=== PATIENT | female | born 1990 | race Caucasian/White ===

== ENCOUNTER 2016-12-13 09:50 | Observation (INO) | payer OTHER ==
[~2016-12-13] VITALS: Ht 165.1 cm; Wt 71.3 kg
[2016-12-13] MEDS ORDERED: morphine 4 MG/ML VIAL IV STA (10:23)
[2016-12-13] MEDS ORDERED: SOD CHLORIDE 0.9% 1,000 ML IV STA (10:23)
--- NOTE | 2016-12-13 10:30 | ERD ---
ER Documentation Chief Complaint Date/Time DATE: 12/13/16 TIME: 10:28 Chief Complaint ap today, hx gallstones HPI This is a 26-year-old female presents to the ER complaining of right upper quadrant abdominal pain. Patient has a past medical history of gallstones. Yesterday she had some nodules that had a lot of cheese on them she began to experience pain shortly after that. Pain is significantly increased. Patient denies any fevers or chills. She does admit to nausea however she denies vomiting. She denies diarrhea. Patient tried taking 2 Advil however it did not help the pain. It is not described as crampy in nature. ROS 12 point review of systems was done, all negative except per HPI. Allergies Allergies: Coded Allergies: No Known Drug Allergies (Verified Allergy, Mild, 01/01/15) PMhx/Soc Medical and Surgical Hx: pt denies Surgical Hx History of Surgery: No Anesthesia Reaction: No Hx Neurological Disorder: No Hx Respiratory Disorders: No Hx Cardiac Disorders: No Hx Psychiatric Problems: No Hx Miscellaneous Medical Probl: Yes (GALLSTONES) Hx Alcohol Use: No Hx Substance Use: No Hx Tobacco Use: No Smoking Status: Never smoker Physical Exam Vitals Vital Signs Date Time Temp Pulse Resp B/P Pulse Ox O2 Delivery O2 Flow Rate FiO2 12/13/16 10:01 98.1 58 20 101/55 99 Physical Exam GENERAL: The patient is well developed and appropriate for usual state of health , in no apparent distress. HEENT: Atraumatic. CHEST: Clear to auscultation bilaterally. There are no rales, wheezes or rhonchi. HEART: Regular rate and rhythm. No murmurs, clicks, rubs or gallops. ABDOMEN: Soft, nontender and nondistended. Good bowel sounds. No rebound or guarding. No gross peritonitis. No gross organomegaly or masses. No Stephens sign or McBurney point tenderness. BACK: No midline or flank tenderness. EXTREMITIES:Full range of motion. Grossly neurovascularly intact. NEURO: Alert and oriented. Result Diagram: 12/13/16 1125 12/13/16 1125 Results 24 hrs Laboratory Tests Test 12/13/16 10:45 12/13/16 11:25 Urine Bilirubin NEGATIVE Urine Clarity CLEAR Urine Color YELLOW Urine Glucose NEGATIVE% Urine Hemoglobin TRACE Urine Ketones NEGATIVE Urine Leukocyte Esterase TRACE Urine Microscopic RBC 0-2/HPF Urine Microscopic WBC 10-25/HPF Urine Mucus MODERATE Urine Nitrite NEGATIVE Urine Specific [place] >=1.030 Urine Squamous Epithelial Cells MANY Urine Total Protein TRACE Urine Urobilinogen 0.2 E.U./dL Urine pH 6.0 Alanine Aminotransferase (ALT/SGPT) 102IU/L Albumin 4.3g/dl Albumin/Globulin Ratio 1.22 Alkaline Phosphatase 117IU/L Anion Gap 16 Aspartate Amino Transf (AST/SGOT) 190IU/L Basophils # 0.010^3/ul Basophils % 0.2% Blood Urea Nitrogen 11mg/dl Calcium Level 9.2mg/dl Carbon Dioxide Level 28mmol/L Chloride Level 104mmol/L Creatinine 0.75mg/dl Direct Bilirubin 0.00mg/dl Eosinophils # 0.010^3/ul Eosinophils % 0.1% Globulin 3.50g/dl Glucose Level 101mg/dl Hematocrit 40.2% Hemoglobin 13.7g/dl Indirect Bilirubin 0.6mg/dl Lipase 98U/L Lymphocytes # 0.510^3/ul Lymphocytes % 4.4% Mean Corpuscular Hemoglobin 30.6pg Mean Corpuscular Hemoglobin Concent 34.0g/dl Mean Corpuscular Volume 90.0fl Mean Platelet Volume 9.9fl Monocytes # 0.910^3/ul Monocytes % 7.3% Neutrophils # 10.410^3/ul Neutrophils % 88.0% Nucleated Red Blood Cells # 0.010^3/ul Nucleated Red Blood Cells % 0.0/100WBC Platelet Count 22674^3/UL Potassium Level 3.3mmol/L Red Blood Count 4.4710^6/ul Red Cell Distribution Width 13.2% Sodium Level 145mmol/L Total Bilirubin 0.6mg/dl Total Protein 7.8g/dl White Blood Count 11.810^3/ul Current Medications Medications (Trade) Dose Ordered Sig/Tanvir Route PRN Reason Start Time Stop Time Status Last Admin Dose Admin Sodium Chloride (NS) 1,000 ml @ 1,000 mls/hr Q1H STAT IV 12/13/16 10:23 12/13/16 11:22 DC 12/13/16 11:28 Morphine Sulfate (morphine) 6 mg ONCE STAT IV 12/13/16 10:23 12/13/16 10:25 DC 12/13/16 11:29 Procedures/MDM Differential Diagnosis: GERD, gastritis, peptic ulcer disease, pancreatitis, cholecystitis, choledocholithiasis, biliary colic, cholangitis, [id number] , ACS/MT, Pnuemonia. at this time patient does have choledochal lithiasis. She has an elevation in her liver enzymes. Patient would benefit from admission to do an MRCP. Departure Diagnosis: Primary Impression: Choledocholithiasis Condition: Stable JENNIE GRADY Dec 13, 2016 10:30
--- NOTE | 2016-12-13 11:13 | RADRPT ---
PROCEDURE: US Abdomen (right upper quadrant). CLINICAL INDICATION: Right upper quadrant abdomen pain. The patient recently ate. TECHNIQUE: Multiple real-time longitudinal and transverse images of the right upper quadrant of th e abdomen were acquired utilizing a curved array transducer. Images were reviewed on a high-resoluti on PACS workstation. COMPARISON: Right upper quadrant abdomen ultrasound dated 01/01/2015. FINDINGS: The liver is normal in echogenicity and borderline enlarged. There is no focal hepatic lesion. Color Doppler and pulsed Doppler sonography demonstrate normal a ntegrade flow in the portal vein. The gallbladder is contracted due to the postprandial state. Gallstones are present in the gallbladd er. There is no fluid around the gallbladder. The bile ducts are dilated with the common bile duct measuring 11.5 mm in diameter. The visualized portions of the pancreas are unremarkable with obscuration of the tail of the pancrea s. No free fluid is present. The right kidney measures 10.0 x 3.6 cm. There is normal echogenicity of the right kidney. There is no perinephric fluid collection. No hydronephrosis, mass, or calculus is seen. IMPRESSION: 1. Borderline hepatomegaly. 2. Contracted gallbladder with gallstones present. 3. Dilated common bile duct measuring 11.5 mm; prior was 7 mm. Correlation with MRCP should be con sidered. RPTAT: QQ .Ke Sellers MD, Date Time Electronically viewed and signed by .Ke Sellers MD, on 12/13/2016 11:12 .R/
[2016-12-13 11:33] LABS: ADD UMIC YES; URINE BILIRUBIN (Dip) NEGATIVE (NEGATIVE); URINE BLOOD (Dip) TRACE (NEGATIVE); URINE COLOR YELLOW (YELLOW); URINE GLUCOSE (Dip) NEGATIVE (NEGATIVE); URINE KETONES (Dip) NEGATIVE (NEGATIVE); URINE LEUKOCYTE ESTERASE (Dip) TRACE (NEGATIVE); URINE NITRITE (Dip) NEGATIVE (NEGATIVE); URINE TOTAL PROTEIN (Dip) TRACE (NEGATIVE); URINE UROBILINOGEN (Dip) 0.2 E.U./dL (0.1-1.0)
[2016-12-13 11:56] LABS: SQUAMOUS EPITHELIAL CELL,UR MANY
[2016-12-13 11:57] LABS: MUCUS,URINE MODERATE; URINE RBCS 0-2 /HPF ([, 0])
[2016-12-13 11:58] LABS: ALBUMIN 4.3 g/dl (3.3-4.9); POTASSIUM 3.3 mmol/L (3.5-5.1)
[2016-12-13 12:01] LABS: ALBUMIN/GLOBULIN RATIO 1.22; BILIRUBIN,INDIRECT 0.6 mg/dl (0-1.1); BILIRUBIN,TOTAL 0.6 mg/dl (0.2-1.3); CALCIUM 9.2 mg/dl (8.4-10.2); CREATININE 0.75 mg/dl (0.44-1.00); TOTAL PROTEIN 7.8 g/dl (6.1-8.1)
[2016-12-13 12:11] LABS: BASOPHILS % 0.2 % (0.0-2.0); EOSINOPHILS % 0.1 % (0.0-7.0); HEMATOCRIT 40.2 % (37.0-47.0); HEMOGLOBIN 13.7 g/dl (12.0-16.0); LYMPHOCYTES # 0.5 10^3/ul (0.8-2.9); LYMPHOCYTES % 4.4 % (15.0-51.0); MEAN CORPUSCULAR HEMOGLOBIN 30.6 pg (29.0-33.0); MEAN PLATELET VOLUME 9.9 fl (7.4-10.4); MONOCYTE # 0.9 10^3/ul (0.3-0.9); MONOCYTES % 7.3 % (0.0-11.0); NEUTROPHIL # 10.4 10^3/ul (1.6-7.5); PLATELET COUNT 202 10^3/UL (140-440); RED BLOOD COUNT 4.47 10^6/ul (4.20-5.40); RED CELL DISTRIBUTION WIDTH 13.2 % (11.5-14.5); UNCORRECTED WBC 11.8 10^3/ul (4.8-10.8); WHITE BLOOD COUNT 11.8 10^3/ul (4.8-10.8)
[2016-12-13 12:16] LABS: CONDITION 1
[2016-12-13] MEDS ORDERED: SOD CHLORIDE 0.9% 1,000 ML IV SCH (15:09)
[2016-12-13] MEDS ORDERED: ACETAMINOPHEN 325 MG TAB PO PRN (15:30)
[2016-12-13] MEDS ORDERED: ONDANSETRON 4 MG INJ IV PRN (15:30)
--- NOTE | 2016-12-13 15:48 | CONS ---
Date/Time of Note Date/Time of Note DATE: 12/13/16 TIME: 15:46 Assessment/Plan Assessment/Plan Chief Complaint/Hosp Course Impression: 1. elevated transaminases with normal alk phos and bilirubin 2. gallstones with dilated CBD 3. abdominal pain, likely biliary colic 4. hypokalemia Recommendations: 1. MRCP to r/o CBD stone 2. if there is CBD stone, will plan for ERCP with stone extraction. 3. surgical consult for consideration of cholecystectomy as this is recurrent biliary colic and recommended previously. Patient is amenable to undergo cholecystectomy with my counseling. 4. protonix 40 iv bid in case pain is from gastritis, PUD or esophagitis. 5. check viral hepatitis panel to r/o acute viral hepatitis 6. change IVF to D5 LR with 20 KCL for hydration and replete potassium Problems: Consultation Date/Type/Reason Admit Date/Time Type of Consultation: GI Hx of Present Illness 26-year-old female is admitted for right upper quadrant abdominal pain and r/o choledocholithiasis. Patient has a past medical history of gallstones initially found during her . She was previously told that she needed a cholecystectomy but declined because she was "afraid of surgery". Yesterday she had some nachos that had a lot of cheese on them she began to experience pain shortly after that. Pain at RUQ and radiates to the back. Patient denies any fevers or chills. She does admit to nausea however she denies vomiting. She denies diarrhea. Patient tried taking 2 Advil however it did not help the pain. It is not described as crampy in nature. No fever, chills, chest pain or sob. No dysuria, melena, headache, hematuria. All point ROS administered, pertinent positives and negatives in HPI otherwise negative. Past Medical History Medical History: gallstones, GERD Social History Alcohol Use: occasionally Smoking Status: Never smoker Drug Use: none Exam/Review of Systems Vital Signs Vitals Vital Signs Date Time Temp Pulse Resp B/P Pulse Ox O2 Delivery O2 Flow Rate FiO2 12/13/16 10:01 98.1 58 20 101/55 99 Exam Constitutional: alert, obese, oriented, well developed Psych: nl mood/affect, no complaints Head: atraumatic, normocephalic Eyes: EOMI, nl conjunctiva, nl lids, nl sclera ENMT: mucosa pink and moist, nl external ears & nose, nl lips & teeth, nl nasal mucosa & septum Neck: non-tender, supple Respiratory: clear to auscultation Cardiovascular: nl pulses, regular rate and rhythm Gastrointestinal: bowel sounds, soft, tender (TTP of RUQ but negative [place]) Musculoskeletal: nl extremities to inspection, nl gait and stance Neurological: nl mental status, nl speech, nl strength Results Result Diagram: 12/13/16 1125 12/13/16 1125 Results 24 hrs Laboratory Tests Test 12/13/16 10:45 12/13/16 11:25 Urine Bilirubin NEGATIVE Urine Clarity CLEAR Urine Color YELLOW Urine Glucose NEGATIVE Urine Hemoglobin TRACE Urine Ketones NEGATIVE Urine Leukocyte Esterase TRACE H Urine Microscopic RBC 0-2 Urine Microscopic WBC 10-25 Urine Mucus MODERATE Urine Nitrite NEGATIVE Urine Specific [place] >=1.030 H Urine Squamous Epithelial Cells MANY Urine Total Protein TRACE Urine Urobilinogen 0.2 E.U./dL Urine pH 6.0 Alanine Aminotransferase (ALT/SGPT) 102 H Albumin 4.3 Albumin/Globulin Ratio 1.22 Alkaline Phosphatase 117 Anion Gap 16 Aspartate Amino Transf (AST/SGOT) 190 H Basophils # 0.0 Basophils % 0.2 Blood Urea Nitrogen 11 Calcium Level 9.2 Carbon Dioxide Level 28 Chloride Level 104 Creatinine 0.75 Direct Bilirubin 0.00 Eosinophils # 0.0 Eosinophils % 0.1 Globulin 3.50 H Glucose Level 101 Hematocrit 40.2 # Hemoglobin 13.7 # Indirect Bilirubin 0.6 Lipase 98 Lymphocytes # 0.5 L Lymphocytes % 4.4 L Mean Corpuscular Hemoglobin 30.6 Mean Corpuscular Hemoglobin Concent 34.0 Mean Corpuscular Volume 90.0 Mean Platelet Volume 9.9 Monocytes # 0.9 Monocytes % 7.3 Neutrophils # 10.4 H Neutrophils % 88.0 H Nucleated Red Blood Cells # 0.0 Nucleated Red Blood Cells % 0.0 Platelet Count 202 # Potassium Level 3.3 L Red Blood Count 4.47 # Red Cell Distribution Width 13.2 Sodium Level 145 H Total Bilirubin 0.6 Total Protein 7.8 White Blood Count 11.8 #H Medications Medications Current Medications Sodium Chloride (NS) 1,000 ml @ 80 mls/hr [id number] IV ; Start 12/13/16 at 15:09 ; Stop 12/14/16 at 03:38 GERARD IRAHETA MD Dec 13, 2016 15:48
[2016-12-13] MEDS ORDERED: D5-LR + KCL 20 MEQ 1,000 ML IV SCH (16:00)
[2016-12-13 17:16] VITALS: TEMP 98.3
--- NOTE | 2016-12-13 17:27 | RADRPT ---
PROCEDURE: MRCP. CLINICAL INDICATION: Dilated common bile duct. TECHNIQUE: MRCP was performed on a high field MRI scanner. Patient was examined without contrast. 3-D coronal rotating MIP images of the biliary tree are available for review. COMPARISON: Gallbladder ultrasound 12/13/2016. FINDINGS: The gallbladder is contracted. Tiny signal voids are seen within the gallbladder lumen compatible w ith cholelithiasis. There is no gallbladder wall thickening or pericholecystic edema. The common b ile duct measures approximately 6 mm in greatest diameter. There are no internal signal voids to jarquin ggest the presence of choledocholithiasis. There is no pancreatic duct dilatation. The liver, spleen, pancreas and adrenal glands are unremarkable. The kidneys are symmetric in size and signal intensity. There is no hydronephrosis or perinephric e tana. The stomach is mildly distended. The visualized portions of the small large intestines are unremark able. There is no ascites. IMPRESSION: Cholelithiasis without evidence of acute cholecystitis. No evidence of biliary tract obstruction or choledocholithiasis. RPTAT: HLST .Salud Marcano MD, MD Date Time Electronically viewed and signed by .Salud Marcano MD, on 12/13/2016 17:27 .T/
[2016-12-13 17:43] VITALS: BP 93/54; PULSE 71; RESP 16
[2016-12-13 17:45] VITALS: Ht 165.1 cm; Wt 71.3 kg
[2016-12-13] MEDS ORDERED: no medications (18:02)
[2016-12-13] MEDS: PANTOPRAZOLE 40 MG INJ IV SCH (18:24)
[2016-12-13] MEDS: D5-LR + KCL 20 MEQ 1,000 ML IV SCH (18:49)
[2016-12-13] MEDS ORDERED: morphine 2 MG INJ IV PRN (19:00)
[2016-12-13] MEDS ORDERED: HYDROCODONE/APAP (5/325) TAB PO PRN (19:00)
[2016-12-13 19:41] VITALS: BP 131/72; RESP 18
[2016-12-14] MEDS ORDERED: ACETAMINOPHEN 325 MG TAB PO PRN (04:30)
[2016-12-14] MEDS ORDERED: DOCUSATE SODIUM 100 MG CAP PO PRN (04:30)
[2016-12-14] MEDS ORDERED: NACL 0.9% 3 ML SYG IV SCH (04:30)
[2016-12-14] MEDS ORDERED: ONDANSETRON 4 MG TAB PO PRN (04:30)
[2016-12-14] MEDS: D5-LR + KCL 20 MEQ 1,000 ML IV SCH ×2 (05:03→13:43)
[2016-12-14] MEDS: PANTOPRAZOLE 40 MG INJ IV SCH (07:30)
--- NOTE | 2016-12-14 07:54 | CONS ---
Date/Time of Note Date/Time of Note DATE: 12/14/16 TIME: 07:46 Assessment/Plan Assessment/Plan Chief Complaint/Hosp Course Impression: 1. elevated transaminases with normal alk phos and bilirubin 2. gallstones with dilated CBD which become normal caliber with MRCP. Thus no choledocholithiasis. 3. abdominal pain, likely biliary colic due to gallstones. 4. hypokalemia Recommendations: 1. start clear liquid diet today. 2. No indication for ERCP as MRCP showed normalized CBD without choledocholithiasis. 3. surgical consult for consideration of cholecystectomy as this is recurrent biliary colic and recommended previously. Patient is amenable to undergo cholecystectomy with my counseling. 4. protonix 40 iv bid in case pain is from gastritis, PUD or esophagitis. 5. f/u viral hepatitis panel to r/o acute viral hepatitis 6. continue IVF with D5 LR with 20 KCL for hydration and replete potassium Problems: Consultation Date/Type/Reason Admit Date/Time Dec 13, 2016 at 15:09 Initial Consult Date Type of Consultation: GI 24 HR Interval Summary Free Text/Dictation No abdominal pain today. MRCP reviewed and CBD normal without CBD stone. Feels hungry. Exam/Review of Systems Vital Signs Vitals Vital Signs Date Time Temp Pulse Resp B/P Pulse Ox O2 Delivery O2 Flow Rate FiO2 12/13/16 19:41 98.1 65 18 131/72 99 12/13/16 17:43 Room Air Intake and Output 12/13/16 12/13/16 12/14/16 15:00 23:00 07:00 Intake Total 1362 ml Balance 1362 ml Exam Constitutional: alert, oriented, well developed Psych: nl mood/affect, no complaints Head: atraumatic, normocephalic Eyes: EOMI, nl conjunctiva, nl lids, nl sclera ENMT: mucosa pink and moist, nl external ears & nose, nl lips & teeth, nl nasal mucosa & septum Neck: non-tender, supple Respiratory: clear to auscultation, normal air movement Cardiovascular: nl pulses, regular rate and rhythm Gastrointestinal: bowel sounds, non-tender, soft Neurological: nl mental status, nl speech, nl strength Results Result Diagram: 12/13/16 1125 12/13/16 1125 Results 24 hrs Laboratory Tests Test 12/13/16 10:45 12/13/16 11:25 Urine Bilirubin NEGATIVE Urine Clarity CLEAR Urine Color YELLOW Urine Glucose NEGATIVE Urine Hemoglobin TRACE Urine Ketones NEGATIVE Urine Leukocyte Esterase TRACE H Urine Microscopic RBC 0-2 Urine Microscopic WBC 10-25 Urine Mucus MODERATE Urine Nitrite NEGATIVE Urine Specific [place] >=1.030 H Urine Squamous Epithelial Cells MANY Urine Total Protein TRACE Urine Urobilinogen 0.2 E.U./dL Urine pH 6.0 Alanine Aminotransferase (ALT/SGPT) 102 H Albumin 4.3 Albumin/Globulin Ratio 1.22 Alkaline Phosphatase 117 Anion Gap 16 Aspartate Amino Transf (AST/SGOT) 190 H Basophils # 0.0 Basophils % 0.2 Blood Urea Nitrogen 11 Calcium Level 9.2 Carbon Dioxide Level 28 Chloride Level 104 Creatinine 0.75 Direct Bilirubin 0.00 Eosinophils # 0.0 Eosinophils % 0.1 Globulin 3.50 H Glucose Level 101 Hematocrit 40.2 # Hemoglobin 13.7 # Indirect Bilirubin 0.6 Lipase 98 Lymphocytes # 0.5 L Lymphocytes % 4.4 L Mean Corpuscular Hemoglobin 30.6 Mean Corpuscular Hemoglobin Concent 34.0 Mean Corpuscular Volume 90.0 Mean Platelet Volume 9.9 Monocytes # 0.9 Monocytes % 7.3 Neutrophils # 10.4 H Neutrophils % 88.0 H Nucleated Red Blood Cells # 0.0 Nucleated Red Blood Cells % 0.0 Platelet Count 202 # Potassium Level 3.3 L Red Blood Count 4.47 # Red Cell Distribution Width 13.2 Sodium Level 145 H Total Bilirubin 0.6 Total Protein 7.8 White Blood Count 11.8 #H Medications Medications Current Medications Potassium Cl/ Dextrose/Lact Ringer's (D5-Lr + KCl 20 Meq) 1,000 ml @ 100 mls/ hr Q10H IV Last administered on 12/14/16 05:03; Admin Dose 100 MLS/HR; Start 12/13/16 at 17:43 Morphine Sulfate (morphine) 2 mg Q2H PRN IV MODERATE PAIN LEVEL 4-6 Last administered on 12/14/16 00:38; Admin Dose 2 MG; Start 12/13/16 at 19:00 Acetaminophen/ Hydrocodone Bitart ([place] (5/325)) 1 tab Q4H PRN PO MILD PAIN LEVEL 1-3; Start 12/13/16 at 19:00 Ondansetron HCl (Zofran Tab) 4 mg Q6H PRN PO NAUSEA AND/OR VOMITING; Start at 04:30 Acetaminophen (Tylenol Tab) 650 mg Q6H PRN PO PAIN LEVEL 1-3 OR FEVER; Start at 04:30 Docusate Sodium (Colace) 100 mg Q12H PRN PO CONSTIPATION; Start 12/14/16 at 04: 30 GERARD IRAHETA MD Dec 14, 2016 07:54
[2016-12-14 08:27] VITALS: BP 98/56; RESP 17
[2016-12-14] MEDS ORDERED: FAMOTIDINE 20 MG TAB PO SCH (09:00)
--- NOTE | 2016-12-14 10:04 | HP ---
Date/Time of Note Date/Time of Note DATE: 12/14/16 TIME: 10:03 Assessment/Plan VTE Prophylaxis VTE Prophylaxis Intervention: SCD's Lines/Catheters IV Catheter Type (from Nrs): Peripheral IV Assessment/Plan Assessment/Plan [facility] Healthy 26yo with known gallstones, presenting with probable passage of a gallstone. Dilated CBD on MRI, but no infection. Normal WBC 11.8k/ul. No fever. * Advance diet * Follow-up with Dr. Sanders as an outpatient. * My thanks to Dr. Cash Saunders for his thorough GI care. * If tolerating diet, will discharge home later today on Protonix as suggested, and toradol PRN for recurrent pain. Matt Garcia MD PhD [phone] HPI/ROS Admit Date/Time Admit Date/Time Dec 13, 2016 at 15:09 Hx of Present Illness 26-year-old patient of Dr. Good Diallo who was feeling very well until 8am yesterday when she ate a plate of cheese nachos. She developed severe RUQ pain shortly thereafter, with nausea but no emesis. No fever, chills, diarrhea or constipation. She took some Advil without benefit. She has a known history of gallstones appreciated during the last of her 3 pregnancies. No previous surgery, including . No known drug allergies. No regular medications. ROS As above. Psychological: nl mood/affect, no complaints PMH/Family/Social Past Medical History Medical History: gallstones, GERD Family History Significant Family History: other (No gallbladder disease. Father, mother, and two siblings are all very healthy. No diabetes in the family.) Social History She works with [employer]. Alcohol Use: occasionally Smoking Status: Never smoker Drug Use: none Exam/Review of Systems Vital Signs Vitals Vital Signs Date Time Temp Pulse Resp B/P Pulse Ox O2 Delivery O2 Flow Rate FiO2 12/14/16 08:27 98.7 84 17 98/56 98 12/13/16 17:43 Room Air Intake and Output 12/13/16 12/13/16 12/14/16 15:00 23:00 07:00 Intake Total 1362 ml Balance 1362 ml Exam Constitutional: alert, oriented Psych: no complaints Head: atraumatic, normocephalic Eyes: EOMI, PERRL, nl conjunctiva, nl sclera, No icteric ENMT: mucosa pink and moist Neck: non-tender, supple Respiratory: clear to auscultation, normal air movement, No congested cough, No crackles/rales, No diminished breath sounds, No intercostal retraction, No labored breathing, No wheezing Cardiovascular: nl pulses, regular rate and rhythm, No bruits, No diastolic murmur, No edema, No gallop, No irregular rhythm, No jugular venous distention (JVD), No murmurs/extra sounds, No rub, No systolic murmur Gastrointestinal: bowel sounds, nl liver, spleen, non-tender, soft, No ascites, No distended, No firm, No hepatomegaly, No mass, No rebound or guarding, No splenomegaly, No surgical scars, No tender Genitourinary - Female: nl external genitalia, No CVA tenderness Musculoskeletal: muscle tone, nl extremities to inspection, nl gait and stance , range of motion, No joint tenderness, No muscle weakness, No spine non-tender, No swelling Extremities: normal pulses, No calf tenderness, No clubbing, No cyanosis, No edema, No palpable cord, No pitting pedal edema, No tenderness Neurological: KILN CLEANER II-XII intact, nl mental status, nl speech, nl strength Skin: nl turgor, No diaphoresis, No ecchymosis, No laceration, No puncture, No rash or lesions Lymph: nl lymph nodes Labs Result Diagram: 12/13/16 1125 12/13/16 1125 Medications Medications Current Medications Potassium Cl/ Dextrose/Lact Ringer's (D5-Lr + KCl 20 Meq) 1,000 ml @ 100 mls/ hr Q10H IV Last administered on 12/14/16 05:03; Admin Dose 100 MLS/HR; Start 12/13/16 at 17:43 Morphine Sulfate (morphine) 2 mg Q2H PRN IV MODERATE PAIN LEVEL 4-6 Last administered on 12/14/16 00:38; Admin Dose 2 MG; Start 12/13/16 at 19:00 Acetaminophen/ Hydrocodone Bitart ([place] (5/325)) 1 tab Q4H PRN PO MILD PAIN LEVEL 1-3; Start 12/13/16 at 19:00 Ondansetron HCl (Zofran Tab) 4 mg Q6H PRN PO NAUSEA AND/OR VOMITING; Start at 04:30 Acetaminophen (Tylenol Tab) 650 mg Q6H PRN PO PAIN LEVEL 1-3 OR FEVER; Start at 04:30 Docusate Sodium (Colace) 100 mg Q12H PRN PO CONSTIPATION; Start 12/14/16 at 04: 30 ROXI GARCIA M.D. Dec 14, 2016 10:04
[2016-12-14 11:31] LABS: HAAIG REFLEX REFLEX FILED
[2016-12-14 11:52] LABS: BASOPHILS % 0.2 % (0.0-2.0); EOSINOPHILS % 0.5 % (0.0-7.0); HEMATOCRIT 38.8 % (37.0-47.0); HEMOGLOBIN 13.1 g/dl (12.0-16.0); LYMPHOCYTES # 0.8 10^3/ul (0.8-2.9); LYMPHOCYTES % 11.3 % (15.0-51.0); MEAN CORPUSCULAR HEMOGLOBIN 30.3 pg (29.0-33.0); MEAN CORPUSCULAR HGB CONC 33.7 g/dl (32.0-37.0); MEAN PLATELET VOLUME 10.2 fl (7.4-10.4); MONOCYTE # 0.6 10^3/ul (0.3-0.9); MONOCYTES % 9.7 % (0.0-11.0); NEUTROPHIL # 5.2 10^3/ul (1.6-7.5); NEUTROPHILS % 78.3 % (39.0-77.0); PLATELET COUNT 198 10^3/UL (140-440); RED BLOOD COUNT 4.31 10^6/ul (4.20-5.40); UNCORRECTED WBC 6.7 10^3/ul (4.8-10.8); WHITE BLOOD COUNT 6.7 10^3/ul (4.8-10.8)
[2016-12-14 11:54] LABS: CONDITION 1
[2016-12-14 11:57] LABS: POTASSIUM 3.9 mmol/L (3.5-5.1)
[2016-12-14 11:59] LABS: CREATININE 0.65 mg/dl (0.44-1.00)
[2016-12-14 12:00] LABS: CALCIUM 8.9 mg/dl (8.4-10.2)
[2016-12-14 12:48] LABS: HEPATITIS B CORE ANTIBODY NEGATIVE (NEGATIVE)
--- NOTE | 2016-12-14 15:31 | CONS ---
DATE OF ADMISSION: 12/13/2016 DATE OF CONSULTATION: 12/14/2016 HISTORY OF PRESENT ILLNESS: Ms. Maki is a 26-year-old female who presented to the emergency room at [facility] yesterday due to right upper quadrant pain. She has a history of ch oledocholithiasis, as well as history of cholelithiasis. She has refused surgery in the past. She developed some abdominal pain to her epigastrium last night, radiating to her back. She had nausea but no emesis. The patient was without complaints this morning. PAST MEDICAL HISTORY: Positive for GERD and cholelithiasis. SOCIAL HISTORY: She drinks occasionally. No smoking or drug use. PAST SURGICAL HISTORY: None. MEDICATIONS: None. ALLERGIES: NO KNOWN DRUG ALLERGIES. PHYSICAL EXAMINATION: GENERAL: She is a well-nourished, well-developed female in no apparent distress. CHEST: Clear to auscultation bilaterally. HEART: Regular rhythm. ABDOMEN: Soft, nontender, nondistended. VITAL SIGNS: He is currently afebrile. Vital signs stable. CHEST: Clear to auscultation bilaterally. HEART: Regular rhythm. ABDOMEN: Soft, nontender, nondistended. An ultrasound revealed contracted gallbladder with gallsto gianni and dilated common bile duct. She did have an MRCP which revealed cholelithiasis, no choledocho lithiasis. LABORATORY DATA: Labs from yesterday reveal a white count of 12, hematocrit of 40 and platelets of 202. Sodium 145, potassium 3.3, chloride 104, CO2 28, BUN and creatinine 11 and 0.7 and glucose of 101. ASSESSMENT AND PLAN: Ms. Maki is a 26-year-old female with: 1. Recurrent biliary colic, resolved. 2. We discussed the need for laparoscopic cholecystectomy with the patient. 3. The patient was given my card and will see me as an outpatient for possible surgery in a [facility]. Dictated By: BHARATI JAIME/REYNALDO Conf#: [id number] DID#: [id number]
--- NOTE | 2016-12-14 17:02 | PDOCDIS ---
Discharge Instructions DIAGNOSIS Discharge Diagnosis: Cholelithiasis CONDITION Patient Condition: Good HOME CARE INSTRUCTIONS: Diet Instructions: RegularSpecial Diet: Avoid fatty foods for now ACTIVITY: Activity Restrictions: Slowly Increase Activity FOLLOW UP/APPOINTMENTS Appointments Bala Sanders MD (surgeon); please call for appointment tomorrow. ROXI ALVARADO M.D. Dec 14, 2016 17:02
[2016-12-14] MEDS ORDERED: KETO10TA PO ×2 (17:06→23:21)
[2016-12-14] MEDS ORDERED: PANT40TA3 PO (17:06)
--- NOTE | 2016-12-14 17:14 | DS ---
Date/Time of Note Date/Time of Note DATE: 12/14/16 TIME: 17:07 Discharge Summary Admission/Discharge Info Admit Date/Time Dec 13, 2016 at 15:09 Discharge Date/Time Dec 14, 2016 Final Diagnosis Cholelithiasis Patient Condition: Good Consults Bharati Jo MD (surgery) Andrea Saunders MD (GI) Procedures MRCP Abd ultrasound Hx of Present Illness 26-year-old patient of Dr. Good Diallo who was feeling very well until 8am yesterday when she ate a plate of cheese nachos. She developed severe RUQ pain shortly thereafter, with nausea but no emesis. No fever, chills, diarrhea or constipation. She took some Advil without benefit. She has a known history of gallstones appreciated during the last of her 3 pregnancies. No previous surgery, including . No known drug allergies. No regular medications. Hospital Course In the ER, she had elevated transaminases with normal alk phos and bilirubin. Ultrasound showed gallstones with dilated CBD, which become normal caliber with MRCP. No stranding, wall thickening, or other evidence of infection, thus no choledocholithiasis. UA showed 10-25 WBC/hpf, with trace leukocyte esterase positivity. Her abdominal pain, likely biliary colic due to gallstones, had resolved completely by this morning. Hypokalemia was addressed with supplementation. She was started on a clear liquid diet yesterday, and advanced as tolerated today -- she ate a regular lunch with no difficulty. Dr. Saunders felt there was no indication for ERCP as MRCP showed normalized CBD without choledocholithiasis. The surgical consult for consideration of cholecystectomy resulted in plans for outpatient evaluation, as this is recurrent biliary colic and cholecystectomy was recommended previously. The patient was amenable to undergo cholecystectomy. She is being discharged home on Protonix 20 MG PO BID, per Dr. Saunders's recommendation to address any possible coincident gastritis, PUD or esophagitis. Viral serologies for hepatitis B and C virus were all negative today. At the time of discharge, she had a normal physical exam. Home Meds Active Scripts Ketorolac Tromethamine* (Ketorolac Tromethamine*) 10 Mg Tablet, 10 MG PO Q6H Y for PAIN for 5 Days, #20 TAB Prov:ROXI ALVARADO M.D. 12/14/16 Pantoprazole* (Protonix*) 40 Mg Tablet., 20 MG PO BID for 28 Days, TAB Prov:ROXI ALVARADO M.D. 12/14/16 Discontinued Reported Medications [no medications] No Conflict Check 12/13/16 Follow-up Plan Call tomorrow for appointment with Dr. Bharati Jo (surgery). Pending Labs Laboratory Tests Test 12/14/16 11:10 Anion Gap 15 (8-16) Basophils # 0.010^3/ul (0.0-0.1) Basophils % 0.2% (0.0-2.0) Blood Urea Nitrogen 4mg/dl (7-20) Calcium Level 8.9mg/dl (8.4-10.2) Carbon Dioxide Level 27mmol/L (21-31) Chloride Level 106mmol/L (97-110) Creatinine 0.65mg/dl (0.44-1.00) Eosinophils # 0.010^3/ul (0.0-0.5) Eosinophils % 0.5% (0.0-7.0) Glucose Level 118mg/dl (70-220) Hematocrit 38.8% (37.0-47.0) Hemoglobin 13.1g/dl (12.0-16.0) Hepatitis B Core Total Antibody NEGATIVE (NEGATIVE) Hepatitis B Surface Antigen NEGATIVE (NEGATIVE) Hepatitis C Antibody NEGATIVE (NEGATIVE) Lymphocytes # 0.810^3/ul (0.8-2.9) Lymphocytes % 11.3% (15.0-51.0) Mean Corpuscular Hemoglobin 30.3pg (29.0-33.0) Mean Corpuscular Hemoglobin Concent 33.7g/dl (32.0-37.0) Mean Corpuscular Volume 90.0fl (82.0-101.0) Mean Platelet Volume 10.2fl (7.4-10.4) Monocytes # 0.610^3/ul (0.3-0.9) Monocytes % 9.7% (0.0-11.0) Neutrophils # 5.210^3/ul (1.6-7.5) Neutrophils % 78.3% (39.0-77.0) Nucleated Red Blood Cells # 0.010^3/ul (0.0-0.0) Nucleated Red Blood Cells % 0.0/100WBC (0.0-0.0) Platelet Count 86782^3/UL (140-440) Potassium Level 3.9mmol/L (3.5-5.1) Red Blood Count 4.3110^6/ul (4.20-5.40) Red Cell Distribution Width 13.0% (11.5-14.5) Sodium Level 144mmol/L (135-144) White Blood Count 6.710^3/ul (4.8-10.8) Copies To: CC: BHARATI JO MD; GERARD SAUNDERS MD, JOHN P. M.D. Dec 14, 2016 17:14
[2016-12-14] MEDS ORDERED: PANT20TA2 PO (23:21)
== END 2016-12-14 18:15 | disposition home or self-care (01) ==
LOC: FTE 09:50 → PP2 15:09
PROVIDERS: ADMIT Internal Medicine; ATTEND Internal Medicine
DX: K80.20 Calculus of gallbladder without cholecystitis without obstruction (principal); K21.9 Gastro-esophageal reflux disease without esophagitis; R74.0 Nonspecific elevation of levels of transaminase and lactic acid dehydrogenase [LDH]; E87.6 Hypokalemia
CPT/HCPCS: 36415; 74181; 76705; 80048; 80053; 81001; 83690; 85025; 86704; 86709; 86803; 87340; 96374; C9113; J2270; J3480; J7030; Z7500; Z7502; Z7610; 81003; G0378

== ENCOUNTER 2016-12-14 21:35 | Emergency (ER) | payer OTHER ==
[~2016-12-14] VITALS: Ht 152.4 cm; Wt 71.5 kg
[~2016-12-14 21:35] MED LIST: KETO10TA PO; PANT40TA3 PO; no medications
[2016-12-14 21:40] VITALS: Ht 152.4 cm; Wt 71.5 kg
[2016-12-14] MEDS ORDERED: PANT20TA2 PO (23:21)
[2016-12-14] MEDS ORDERED: KETO10TA PO (23:21)
--- NOTE | 2016-12-14 23:36 | ERD ---
ER Documentation Chief Complaint Date/Time DATE: 12/14/16 TIME: 23:32 Chief Complaint admitted/discharged w/out script x pain,[facility] didnt [facility] script HPI This is a 26-year-old female presenting to the emergency department who was recently discharged today from this hospital for choledocholithiasis presents to the emergency room stating that she was discharged with a pain medication that the doctor Pattie called to the pharmacy. However patient states that the [facility] did not [facility]. Patient presents asking for t a prescription for the same medications. She denies any abdominal pain, nausea, fever, vomiting. ROS All systems reviewed and are negative except as per history of present illness. Medications Home Meds Active Scripts Pantoprazole* (Protonix*) 20 Mg Tablet., 20 MG PO BID for 28 Days, TAB Prov:CHARITY KERNS PA-C 12/14/16 Ketorolac Tromethamine* (Ketorolac Tromethamine*) 10 Mg Tablet, 10 MG PO Q6H Y for PAIN for 5 Days, TAB Prov:CHARITY KERNS PA-C 12/14/16 Ketorolac Tromethamine* (Ketorolac Tromethamine*) 10 Mg Tablet, 10 MG PO Q6H Y for PAIN for 5 Days, #20 TAB Prov:ROXI GARCIA M.D. 12/14/16 Pantoprazole* (Protonix*) 40 Mg Tablet., 20 MG PO BID for 28 Days, TAB Prov:ROXI GARCIA M.D. 12/14/16 Discontinued Reported Medications [no medications] No Conflict Check 12/13/16 Allergies Allergies: Coded Allergies: No Known Drug Allergies (Verified Allergy, Mild, 01/01/15) PMhx/Soc Anesthesia Reaction: No Hx Neurological Disorder: No Hx Respiratory Disorders: No Hx Cardiac Disorders: No Hx Psychiatric Problems: No Hx Miscellaneous Medical Probl: Yes (GALLSTONES) Hx Alcohol Use: No Hx Substance Use: No Hx Tobacco Use: No Physical Exam Vitals Vital Signs Date Time Temp Pulse Resp B/P Pulse Ox O2 Delivery O2 Flow Rate FiO2 12/14/16 21:40 97.8 79 18 110/56 99 Physical Exam GENERAL: well-developed/well-nourished, in no apparent distress, non-toxic appearing HENT: NC/AT, moist mucous membranes EYES: Conjunctiva normal NECK: Supple, no lymphadenopathy PULM: CTA bilaterally, no rales, rhonchi, or wheezing heard CV: Normal S1S2, RRR, good capillary refill GI: Soft, non-distended, nonn-tender to palpation Normal bowel sounds, no masses or organomegaly felt on exam No gross peritonitis, no bruits Negative Rovsing, negative Stephens, negative McBurney's point, Negative CVAT BACK: No masses EXT: No clubbing, cyanosis, or edema NEURO: Alert and Orientated SKIN: Intact, normal turgor PSYCH: Normal mood and mentation Procedures/MDM This is a 26-year-old female presenting to the emergency department who was recently discharged today from this hospital for choledocholithiasis presents to the emergency room stating that she was discharged with a pain medication however [facility] never rec[facility] script, she states was supposed to call it in the pharmacy. I have reviewed patient's past chart. I have written a prescription for ketorolac 10 mg twice daily for 5 days and Protonix as prescribed by Dr. Garcia. Patient did not have any abdominal pain. She appeared well she had stable vital signs. I doubt worsening cholecystitis or cholelithiasis at this point. She stable for discharge with precautions to return to the emergency room Departure Diagnosis: Primary Impression: Encounter for medication refill Additional Impression: Choledocholithiasis Condition: Stable Patient Instructions: Taking Medicine Safely, Biliary Colic With Gallstone ( Confirmed) Additional Instructions: Take all medicines as directed. Return to this facility if you are not improving as expected. FOLLOW UP WITH YOUR PRIMARY CARE PHYSICIAN TOMORROW.Return to this facility if you are not improving as expected. [place] toda la medicina yessy y yanci se le indic. Visite a jarquin mdjeanne manriquez para un EXAMEN.Regrese a estas instalaciones si no se mejora yanci esperbamos o yanci le dijimos. Regrese a estas instalaciones si no se mejora yanci esperbamos o yanci le dijimos. CHARITY KERNS PA-C Dec 14, 2016 23:36
[2016-12-14 23:59] VITALS: BP 113/65; PULSE 70; RESP 18; TEMP 98
== END 2016-12-15 | disposition home or self-care (01) ==
LOC: FTE 21:35
DX: Z76.0 Encounter for issue of repeat prescription (principal); K80.50 Calculus of bile duct without cholangitis or cholecystitis without obstruction
CPT/HCPCS: 99284